=== PATIENT | female | born 1985 | race Caucasian/White ===

== ENCOUNTER → 2018-03-05 11:42 | Outpatient (CLI) | payer OTHER, MEDICAID, SELFPAY ==
[2018-03-05 12:29] LABS: Alanine Aminotransferase 101 IU/L (9-52); Albumin 4.9 g/dL (3.5-5.0); Albumin Globulin Ratio 1.6 (1.0-2.8); Alkaline Phosphatase 75 U/L (38-126); Aspartate Aminotransferase 53 IU/L (14-36); BUN Creatinine Ratio 13.3 (6-22); Bilirubin Total 0.8 mg/dL (0.2-1.3); Blood Urea Nitrogen 8 mg/dL (7-17); Calcium 9.3 mg/dL (8.4-10.2); Carbon Dioxide 28 mmol/L (22-32); Chloride 102 mmol/L (98-107); Estimated Glomerular Filt Rate > 60.0 mL/min (>60); Globulin 3.1 g/dL (1.7-4.1); Glucose 95 mg/dL (70-100); HEMOLYSIS < 15 (0-50); Potassium 4.1 mmol/L (3.4-5.1); Sodium 145 mmol/L (137-145)
[2018-03-05 13:16] LABS: TSH w/ Reflex to FT4 1.27 uIU/mL (0.47-4.68)
== END ==
PROVIDERS: PCP Family Medicine; Visit Provider Registered Nurse
DX: I10 Essential (primary) hypertension (principal)
CPT/HCPCS: 36415; 80053; 84443

== ENCOUNTER → 2018-03-30 09:25 | Outpatient (CLI) | payer OTHER, MEDICAID, SELFPAY ==
[2018-03-30 10:11] LABS: Add Manual Diff / Slide Review NO; Basophils Percent Auto 0.7 % (0-2); Eosinophils Percent Auto 2.1 % (2-4); Hemoglobin 15.4 g/dL (12.0-16.0); Lymphocytes Percent Auto 22.2 % (25-40); Mean Corpuscular HGB Conc 34.2 % (30-36); Mean Corpuscular Hemoglobin 32.7 PG (26-34); Mean Corpuscular Volume 95.6 fL (80-100); Monocytes Percent Auto 7.1 % (3-14); Neutrophils Absolute Auto 5500 /uL (1500-7000); Neutrophils Percent Auto 67.9 % (50-75); Platelet Count 290 X10^3/uL (150-400); Red Blood Cell Count 4.71 X10^6/uL (4.0-5.2); Red Cell Distribution Width 12.3 % (11.6-14.8); White Blood Cell Count 8.1 X10^3/uL (4.5-11.0)
[2018-03-30 10:15] LABS: Cholesterol 179 mg/dL (140-199); HDL Cholesterol 36 mg/dL (40-60); LDL Cholesterol Calculated 118 mg/dL (<100); Triglycerides 125 mg/dL (35-150)
[2018-03-30 10:19] LABS: Alanine Aminotransferase 66 IU/L (9-52); Albumin 4.7 g/dL (3.5-5.0); Albumin Globulin Ratio 1.6 (1.0-2.8); Alkaline Phosphatase 83 U/L (38-126); Aspartate Aminotransferase 34 IU/L (14-36); BUN Creatinine Ratio 13.3 (6-22); Blood Urea Nitrogen 8 mg/dL (7-17); Calcium 9.7 mg/dL (8.4-10.2); Carbon Dioxide 27 mmol/L (22-32); Chloride 103 mmol/L (98-107); Estimated Glomerular Filt Rate > 60.0 mL/min (>60); Globulin 2.9 g/dL (1.7-4.1); Glucose 96 mg/dL (70-100); HEMOLYSIS < 15 (0-50); Potassium 4.3 mmol/L (3.4-5.1); Sodium 142 mmol/L (137-145); Total Protein 7.6 g/dL (6.3-8.2)
== END ==
PROVIDERS: Registered Nurse; Family Provider Family Medicine; PCP Family Medicine; Visit Provider Family Medicine
DX: I10 Essential (primary) hypertension (principal); R74.8 Abnormal levels of other serum enzymes
CPT/HCPCS: 36415; 80053; 80061; 85025

== ENCOUNTER → 2019-08-23 11:05 | Outpatient (CLI) | payer OTHER, MEDICAID, SELFPAY ==
[2019-08-23 13:44] LABS: Alanine Aminotransferase 84 IU/L (<35); Albumin 4.1 g/dL (3.5-5.0); Albumin Globulin Ratio 1.4 (1.0-2.8); Alkaline Phosphatase 74 U/L (38-126); Aspartate Aminotransferase 56 IU/L (14-36); BUN Creatinine Ratio 24.1 (6-22); Bilirubin Total 0.7 mg/dL (0.2-1.3); Blood Urea Nitrogen 14 mg/dL (7-17); Calcium 8.8 mg/dL (8.4-10.2); Carbon Dioxide 29 mmol/L (22-32); Chloride 105 mmol/L (98-107); Cholesterol 140 mg/dL (140-199); Estimated Glomerular Filt Rate > 60.0 mL/min (>60); Globulin 2.9 g/dL (1.7-4.1); Glucose 100 mg/dL (70-100); HDL Cholesterol 42 mg/dL (40-60); HEMOLYSIS < 15 (0-50); LDL Cholesterol Calculated 75 mg/dL (<100); Potassium 3.8 mmol/L (3.4-5.1); Sodium 140 mmol/L (137-145); Triglycerides 115 mg/dL (35-150)
[2019-08-23 16:01] LABS: Creatinine Urine Random 336.2 mg/dL
[2019-08-23 16:04] LABS: Microalbumi Creatinin Ratio Ur 3.5 ug/mg CR (<30); Microalbumin Urine Random 1.2 mg/dL (0-1.6)
[2019-08-26 16:14] LABS: COVID19 Sendout Not Detected (Not Detected)
== END ==
PROVIDERS: PCP Family Medicine; Referring Provider Family Medicine; Visit Provider Family Medicine
DX: I10 Essential (primary) hypertension (principal)
CPT/HCPCS: 36415; 80053; 80061; 82043; 82570; 87635

== ENCOUNTER → 2019-08-26 12:15 | Outpatient (CLI) | payer OTHER, MEDICAID, SELFPAY ==
--- NOTE | 2019-09-03 16:14 | PM.PFT.1 ---
Pulmonary Function Test Referral & Results Date Patient Seen: 08/26/19 Requesting provider: Cesilia Beltran Results: The spirometry demonstrates an FVC of 3.46 L which is 98% of predicted. The FEV1 was measured at 2.82 L which is 96% of predicted. The FEV1/FVC ratio was 82 which is 98% of predicted. No bronchodilator was administered Lung volumes show an SVC of 3.24 L which is 96% of predicted. The diffusing capacity was measured at 21.39 which is 99% of predicted. The maximum voluntary ventilation was reduced Interpretation: This study demonstrates normal spirometry and diffusing capacity There is a notable reduction in maximum voluntary ventilation suggesting the possibility of neuromuscular disease Clinical correlation suggested
== END ==
PROVIDERS: PCP Family Medicine; Referring Provider Family Medicine; Visit Provider Family Medicine
DX: R06.02 Shortness of breath (principal); F17.200 Nicotine dependence, unspecified, uncomplicated
CPT/HCPCS: 94010; 94060; 94726; 94729

== ENCOUNTER → 2019-09-06 11:06 | Outpatient (CLI) | payer OTHER, MEDICAID, SELFPAY ==
--- NOTE | 2019-09-06 11:07 | DI.US.S_ITS ---
PROCEDURE: US ABDOMEN COMPLETE INDICATIONS: PERSISTENTLY ELEVATED LIVER ENZYMES TECHNIQUE: Real-time scanning was performed of the abdominal and retroperitoneal organs, with image documentation. COMPARISON: CT, ABD/PELVIS W/CON (PNL), 11/09/2013, 1:34. [facility], US, ABDOMEN COMPLETE, 12/06/2011, 14:39. FINDINGS: Liver: Liver is diffusely increased in echogenicity. No focal hepatic abnormalities identified. Normal hepatic size. Focal fatty sparing adjacent to the gallbladder. Gallbladder: No gallstones identified. Normal gallbladder wall. No pericholecystic fluid. Negative sonographic Edwards sign. Biliary ducts: Intrahepatic bile ducts are non-dilated. Extrahepatic bile duct caliber measures 5 mm. Normal is 6-7 mm or less in diameter, or 10 mm or less post-cholecystectomy. Pancreas: Visualized portions of the pancreas are sonographically normal. Spleen: Spleen is normal in size and homogeneous in echotexture. Kidneys: Kidneys are normal in size and echotexture. Right kidney measures 11.3 cm long; left kidney measures 12.3 cm long. No hydronephrosis or nephrolithiasis. No solid masses. Aorta: Visualized aorta is normal in caliber at less than 3 cm. Iliacs: Not well-visualized. IVC: Intrahepatic inferior vena cava is patent. Miscellaneous: No free abdominal fluid. IMPRESSION: 1. Increased hepatic echogenicity noted possibly related to hepatic steatosis but other sources of hepatocellular disease cannot be excluded. Recommend clinical correlation. Dictated by: Bharath Crow MERGED WITH [facility] Interpreted: Siva Dye MD on 09/06/2019 at 15:14 Approved by: Siva Dye M.D. on 09/06/2019 at 17:39
== END ==
PROVIDERS: PCP Family Medicine; Referring Provider Family Medicine; Visit Provider Family Medicine
DX: R74.8 Abnormal levels of other serum enzymes (principal)
CPT/HCPCS: 76700

== ENCOUNTER → 2019-09-14 09:54 | Outpatient (CLI) | payer OTHER, MEDICAID, SELFPAY ==
[2019-09-15 07:04] LABS: HBsAg Screen Negative (Negative); Hepatitis A Antibody IgM Negative (Negative); Hepatitis B Core Antibody IgM Negative (Negative); Hepatitis C Antibody <0.1 s/co ratio (0.0-0.9)
== END ==
PROVIDERS: PCP Family Medicine; Referring Provider Family Medicine; Visit Provider Family Medicine
DX: R74.8 Abnormal levels of other serum enzymes (principal)
CPT/HCPCS: 36415; 80074

== ENCOUNTER → 2019-11-16 11:21 | Outpatient (CLI) | payer OTHER, MEDICAID, SELFPAY ==
--- NOTE | 2019-11-16 11:26 | DI.US.S_ITS ---
PROCEDURE: US ABDOMEN COMPLETE INDICATIONS: SEVERE RIGHT UPPER QUADRANT PAIN TECHNIQUE: Real-time scanning was performed of the abdominal and retroperitoneal organs, with image documentation. COMPARISON: [facility], US, US ABDOMEN COMPLETE, 09/06/2019, 11:53. FINDINGS: Liver: The liver demonstrates normal size. The liver demonstrates generalized increased echogenicity. This decreases ultrasound sensitivity for detection of hepatic masses. Gallbladder: No findings of gallstones or sludge are seen. The gallbladder wall is not thickened, measuring 3 mm or less. No specific pericholecystic fluid is seen. The sonographic Edwards sign is negative. Biliary ducts: Intrahepatic bile ducts are non-dilated. Extrahepatic bile duct caliber measures 6 mm. Normal is 6-7 mm or less in diameter, or 10 mm or less post-cholecystectomy. Pancreas: Visualized portions of the pancreas are sonographically normal. Spleen: Spleen is normal in size and homogeneous in echotexture. Kidneys: Kidneys are normal in size and echotexture. Right kidney measures 11.2 cm long; left kidney measures 12.5 cm long. No hydronephrosis or nephrolithiasis. No solid masses. Aorta: Visualized aorta is normal in caliber at less than 3 cm. Iliacs: Proximal common iliac arteries are normal in caliber at less than 2.5 cm. IVC: Intrahepatic inferior vena cava is patent. Miscellaneous: No free abdominal fluid. IMPRESSION: The gallbladder demonstrates a normal sonographic appearance. No biliary dilatation is seen. The liver demonstrates increased echogenicity. This finding is nonspecific, yet it is most commonly attributed to fatty infiltration. Dictated by: Don Jolley M.D. on 11/16/2019 at 11:57 Approved by: Don Jolley M.D. on 11/16/2019 at 12:00
[2019-11-16 13:39] LABS: Add Manual Diff / Slide Review NO; Basophils Absolute Auto 100 /uL (0-100); Basophils Percent Auto 0.8 % (0-2); Eosinophils Absolute Auto 100 /uL (0-450); Eosinophils Percent Auto 0.9 % (2-4); Hematocrit 45.8 % (36-46); Hemoglobin 15.8 g/dL (12.0-16.0); Lymphocytes Absolute Auto 2300 /uL (1100-4500); Lymphocytes Percent Auto 25.7 % (25-40); Mean Corpuscular HGB Conc 34.5 % (30-36); Mean Corpuscular Hemoglobin 33.2 PG (26-34); Mean Corpuscular Volume 96.2 fL (80-100); Monocytes Absolute Auto 600 /uL (0-900); Monocytes Percent Auto 6.6 % (3-14); Neutrophils Absolute Auto 6000 /uL (1500-7000); Platelet Count 321 X10^3/uL (150-400); Red Blood Cell Count 4.77 X10^6/uL (4.0-5.2); Red Cell Distribution Width 13.5 % (11.6-14.8); White Blood Cell Count 9.1 X10^3/uL (4.5-11.0)
[2019-11-16 14:15] LABS: Alanine Aminotransferase 66 IU/L (<35); Albumin 4.5 g/dL (3.5-5.0); Albumin Globulin Ratio 1.7 (1.0-2.8); Alkaline Phosphatase 77 U/L (38-126); Aspartate Aminotransferase 42 IU/L (14-36); BUN Creatinine Ratio 17.5 (6-22); Bilirubin Total 0.5 mg/dL (0.2-1.3); Blood Urea Nitrogen 11 mg/dL (7-17); Calcium 9.2 mg/dL (8.4-10.2); Carbon Dioxide 32 mmol/L (22-32); Chloride 98 mmol/L (98-107); Estimated Glomerular Filt Rate > 60.0 mL/min (>60); Globulin 2.7 g/dL (1.7-4.1); Glucose 86 mg/dL (70-100); HEMOLYSIS < 15 (0-50); Lipase 48 U/L (23-300); Potassium 3.3 mmol/L (3.4-5.1); Sodium 139 mmol/L (137-145); Total Protein 7.2 g/dL (6.3-8.2)
== END ==
PROVIDERS: PCP Family Medicine; Referring Provider Family Medicine; Visit Provider Family Medicine
DX: R10.11 Right upper quadrant pain (principal)
CPT/HCPCS: 36415; 76700; 80053; 83690; 85025

== ENCOUNTER → 2019-12-23 07:43 | Outpatient (CLI) | payer OTHER, MEDICAID, SELFPAY ==
--- NOTE | 2019-12-23 07:44 | DI.NM.S_ITS ---
PROCEDURE: NM HIDA WITH CCK PHARMACEUTICAL: 5.5 mCi Tc-99m mebrofenin IV; 1.5 mcg CCK IV. INDICATIONS: biliary colic, no stones on US TECHNIQUE: Following intravenous administration of Tc-99m mebrofenin, sequential anterior abdominal images were obtained. To evaluate the contractile response of the gallbladder in response to Cholecystokinin (CCK), sincalide (0.02 ?g/kg) was administered by slow intravenous infusion approximately 60 minutes after the administration of the radiopharmaceutical. Sequential imaging was continued for 30 minutes after the start of CCK infusion. Gallbladder ejection fraction was calculated. COMPARISON: None. FINDINGS: Biliary scan: There is normal tracer uptake and excretion by the liver. There is normal visualization of the intrahepatic ducts, common bile duct, and gallbladder. There is normal tracer transit into the duodenum. CCK stimulation: There is normal contractile response of the gallbladder to CCK infusion. The calculated gallbladder ejection fraction is 7%; normal values are above 35%. It has been shown that any patient abdominal pain after CCK administration is related to the rate of CCK injection, rather than to any underlying gallbladder disease (Clinical Nuclear Medicine 2012; 37: 63-70. Journal of Nuclear Medicine 2014; 55: 1-9). IMPRESSION: Normal hepatobiliary uptake and scan. Normal gallbladder ejection fraction. Dictated by: Mahin Lopez M.D. on 12/23/2019 at 10:13 Approved by: Mahin Lopez M.D. on 12/23/2019 at 10:15
== END ==
PROVIDERS: PCP Family Medicine; Referring Provider Surgery; Visit Provider Surgery
DX: R10.11 Right upper quadrant pain (principal)
CPT/HCPCS: 78227; A9537; J2805

== ENCOUNTER 2020-01-05 11:44 | Day surgery (SDC) | payer OTHER, MEDICAID, SELFPAY ==
[2020-01-05] VITALS (14 sets, daily range): BP systolic 114–147; BP diastolic 76–89; PULSE 73–101; RESP 10–18; TEMP 36.2–36.8; O2SAT 93–100; BMI 29.2; BMI 29.6
--- NOTE | 2020-01-05 | PATH_ITS ---
[facility] Accession Number: [id number] . 01 Material submitted: . gallbladder - GALLBLADDER AND CONTENTS . 02 Diagnosis: Gallbladder and Contents, Cholecystectomy: Mild chronic cholecystitis. No evidence of neoplasm. MRV 01/07/2020 1142 Local . 02 Electronically signed: . Alden Villalobos MD, PhD, Pathologist NPI- [id number] . 01 Gross description: . Received in formalin, labeled gallbladder and contents, and consists of a 5.0 x 3.0 x 2.0 cm intact gallbladder with a 0.2 cm in diameter cystic duct. The serosa is banks-pink and smooth. Opening reveals a small amount of green viscous bile. No choleliths are identified. The mucosa is banks-pink and velvety, and the wall thickness measures 0.1 cm. Party Plan Sales Agent sections are submitted to include the en face cystic duct margin (green), body and fundus in cassette A1. (EA:[id number]) /MRV 01/06/2020 1056 Local . 02 Pathologist provided ICD-10: K81.1 . 02 CPT . 876342 Performed at: 01 [facility] [address], [place], [place] [id number] MD Fransico Storey MD Phone: [phone] Performed at: 02 [facility] [address] [place], [place] [id number] MD Usha Jacobson MD Phone: [phone]
[2020-01-05 12:39] LABS: COVID19 -Nasal RAPID Negative (Negative)
[2020-01-05] MEDS: ACETAMINOPHEN 325 MG TABLET 975 MG PO (13:12)
[2020-01-05] MEDS: LACTATED RINGERS 1,000 ML 42 ML IV ×2 (13:13→15:47)
[2020-01-05] MEDS: SCOPOLAMINE 1 PATCH TOP (13:13)
--- NOTE | 2020-01-05 13:30 | PM.PREOP ---
Pre-operative Note COVID-19 COVID-19 status: Negative Result date/Date tested (Pos, Neg/Pending): 01/05/20 Interval Note History & Physical reviewed/Exam performed by Physician: Yes Changes to H&P: No
[2020-01-05] MEDS: Non-Formulary Medication (Indocyanine 25 MG) 25 EACH IV (13:36)
[2020-01-05] MEDS: PIPERACILLIN-TAZO 3.375 GM/50 ML FROZ.PIGGY IV (14:00)
--- NOTE | 2020-01-05 14:19 | SUR.OPER ---
Supine on padded OR bed, head on pillow, arms secured on padded arm boards at <90 degrees abduction, legs uncrossed, safety belt at thigh, tape over blanket over lower legs.
[2020-01-05] MEDS: BUPIVACAINE 0.25% W/ EPI 30 ML VIAL 60 ML INJ (15:09)
--- NOTE | 2020-01-05 15:27 | P.OP_ITS ---
Operative Date/Time/Diagnoses Date of procedure: 01/05/20 Time of procedure: 15:27 Pre-op diagnosis: biliary hyperkinesia, biliary colic Post-op diagnosis: other (biliary hyperkinesia, biliary colic, chronic cholecystitis) Procedure & Clinicians Procedure: Laparoscopic cholecystectomy Indocyanine green cholangiography Same procedure as scheduled: Yes Indications: Biliary colic, biliary hyperkinesia Surgeon: Julisa Collins Click Yes if Unassisted: Yes Anesthesia Type: General Operative Notes Findings: Thickend gall bladder with dense adhesions in the hilum Specimen(s): other (gall bladder and contents) Estimated Blood Loss (mL): 3 Procedure in detail: The patient was brought into the operating room and placed supine on the OR table. Sequential compression devices were placed on both legs and turned on. Appropriate perioperative antibiotics were given prior to the start of surgery. General anesthesia was induced the patient was intubated. The abdomen was prepped and draped in sterile fashion. Surgical time-out was conducted. Local anesthetic was injected under the skin just superior to the umbilicus and a 5 mm vertical incision was made at this site. The umbilical stalk was grasped with a Terri and elevated. A Veress needle was passed through the fascia into proper position. The position was tested with a saline drop test which was appropriate for intra-abdominal Veress needle placement. The abdomen was then insufflated in the usual fashion. Once insufflated to 15 mm Hg the Veress needle was removed and a 5 mm optical trocar was placed under direct vision using a 5 mm 30 degree scope. Once the camera was inside the abdomen I took a look around. There was no injury from port placement. Two additional ports were placed in a similar fashion in the right upper quadrant and a 10 mm port was placed in the epigastrium. Through the 2 lateral ports the gallbladder was grasped and elevated and the infundibulum was retracted laterally to the patient's right. This exposed the gallbladder hilum and allowed for dissection of the cystic duct and cystic artery. There was quite a bit of dense scar tissue throughout the gallbladder hilum. This required tedious careful dissection to avoid injury to the bile ducts. I used indocyanine cholangiography to help identify the ducts and ensure the common bile duct was away from the area of dissection. Once the cystic duct and artery were completely dissected out and I was able to see liver behind and between both structures without any other structures in the way, giving us the critical view of safety. At this point I triply clipped both structures on the patient's side and put a single clip on the gallbladder side of both the cystic duct and artery. Both structures were then divided with laparoscopic Girish. Following this the gallbladder was gradually dissected free from the liver. There was quite a bit of hypervascularity of the scar tissue between the gallbladder and the liver. Several small vessels had to be controlled with cautery. Once the gallbladder was entirely freed, it was placed inside an Endo- Catch bag and removed through the epigastric port site. I did not have to enlarge the epigastric port site in order to get the gallbladder out. Once it was out and passed off to the back table I then took another look inside the abdomen. I irrigated and suctioned clean any remaining blood or fluid on the lateral side of the liver and in the subhepatic space. There was no active bleeding or leaking of bile from the gallbladder fossa or from the clipped stumps of the cystic duct and artery. At this point the insufflation was removed from the abdomen and the epigastric port site was closed with 0 Vicryl suture in the fascia, 3 O Vicryl in the subcutaneous layers, and 4 Monocryl in the skin. The remaining port sites were closed with 4 Monocryl in the skin. Each port site was sealed with Dermabond. Local anesthetic was given at each of the port sites and in the fascia. This concluded the procedure. At this point the needle sponge and instrument counts were correct. The gallbladder was passed off the table for pathology. Patient was awakened from anesthesia and extubated. She was transferred to the postanesthesia care unit in stable condition. Complications: none Post-operative Condition: stable Disposition: PACU
[2020-01-05] MEDS: fentaNYL 100 MCG/2 ML INJ IV ×2 (15:37→15:45)
[2020-01-05] MEDS: HYDROMORPHONE 2 MG INJ IV ×2 (15:37→15:55)
[2020-01-05] MEDS: ONDANSETRON 4 MG/2 ML INJ IV ×2 (15:38→16:09)
[2020-01-05] MEDS: OXYCODONE IR 5 MG TABLET PO ×2 (16:09→16:30)
--- NOTE | 2020-01-05 16:44 | SUR.PHASEII ---
Patient to Phase II in stable condition. Patient rates pain 5/10 and denies any nausea at this time. Crackers provided. Awaiting family member to arrive. No needs voiced at this time.
--- NOTE | 2020-01-05 17:23 | SUR.PHASEII ---
Discharged patient home with family in stable condition. All belongings returned to patient. VSS.
== END 2020-01-05 17:21 | disposition home or self-care (01) ==
PROVIDERS: PCP Family Medicine; Referring Provider Surgery; Visit Provider Surgery
PROC: 0FT44ZZ Resection of Gallbladder, Percutaneous Endoscopic Approach (ICD-10-PCS; CPT 47562; principal; 2020-01-05 13:45)
DX: K81.1 Chronic cholecystitis (principal); K82.8 Other specified diseases of gallbladder; I10 Essential (primary) hypertension; F17.210 Nicotine dependence, cigarettes, uncomplicated; F32.9 Major depressive disorder, single episode, unspecified; Z11.59 Encounter for screening for other viral diseases
CPT/HCPCS: 47563; 87635; J0330; J1100; J1170; J1885; J2250; J2405; J2543; J2704; J3010

== ENCOUNTER → 2020-01-18 11:24 | Outpatient (CLI) | payer OTHER, MEDICAID, SELFPAY ==
[2020-01-18 13:28] LABS: Adenovirus F 40/41 Not Detected (Not Detect); Astrovirus Not Detected (Not Detect); Campylobacter Not Detected (Not Detect); Clostridium difficile toxin AB Not Detected (Not Detect); Cryptosporidium Not Detected (Not Detect); Cyclospora cayetanensis Not Detected (Not Detect); Entamoeba histolytica Not Detected (Not Detect); Enteroaggregative E.coli Not Detected (Not Detect); Enteropathogenic E.coli Not Detected (Not Detect); Enterotoxigenic E.coli It/st Not Detected (Not Detect); Giardia lamblia Not Detected (Not Detect); Norovirus GI/GII Not Detected (Not Detect); Plesiomonsa shigelloides Not Detected (Not Detect); Rotavirus A Not Detected (Not Detect); Salmonella Not Detected (Not Detect); Sapovirus Not Detected (Not Detect); Shiga-like toxin-prod E.coli Not Detected (Not Detect); Shigella/Enteroinvasive E.coli Not Detected (Not Detect); Vibrio Not Detected (Not Detect); Vibrio cholerae Not Detected (Not Detect); Yersinia enterocolitica Not Detected (Not Detect)
== END ==
PROVIDERS: PCP Family Medicine; Referring Provider Surgery; Visit Provider Surgery
DX: R19.7 Diarrhea, unspecified (principal)
CPT/HCPCS: 87507

== ENCOUNTER → 2020-02-14 09:51 | Outpatient (CLI) | payer OTHER, MEDICAID, SELFPAY ==
[2020-02-14 10:54] LABS: Add Manual Diff / Slide Review NO; Basophils Absolute Auto 100 /uL (0-100); Basophils Percent Auto 0.8 % (0-2); Eosinophils Absolute Auto 100 /uL (0-450); Eosinophils Percent Auto 1.6 % (2-4); Hematocrit 45.4 % (36-46); Hemoglobin 15.6 g/dL (12.0-16.0); Lymphocytes Absolute Auto 2200 /uL (1100-4500); Lymphocytes Percent Auto 23.8 % (25-40); Mean Corpuscular HGB Conc 34.4 % (30-36); Mean Corpuscular Hemoglobin 33.1 PG (26-34); Monocytes Absolute Auto 700 /uL (0-900); Monocytes Percent Auto 7.9 % (3-14); Neutrophils Absolute Auto 6200 /uL (1500-7000); Neutrophils Percent Auto 65.9 % (50-75); Platelet Count 321 X10^3/uL (150-400); Red Blood Cell Count 4.72 X10^6/uL (4.0-5.2); Red Cell Distribution Width 12.9 % (11.6-14.8); White Blood Cell Count 9.3 X10^3/uL (4.5-11.0)
[2020-02-14 12:19] LABS: TSH w/ Reflex to FT4 1.54 uIU/mL (0.47-4.68)
== END ==
PROVIDERS: PCP Family Medicine; Referring Provider Family Medicine; Visit Provider Family Medicine
DX: F41.8 Other specified anxiety disorders (principal)
CPT/HCPCS: 36415; 84443; 85025

== ENCOUNTER → 2020-02-28 10:20 | Outpatient (CLI) | payer OTHER, MEDICAID, SELFPAY ==
[2020-02-28 11:30] LABS: COVID19 -Nasal RAPID Negative (Negative)
== END ==
PROVIDERS: PCP Family Medicine; Visit Provider Surgery
DX: Z01.812 Encounter for preprocedural laboratory examination (principal); Z20.828 Contact with and (suspected) exposure to other viral communicable diseases
CPT/HCPCS: 87635; 99211

== ENCOUNTER 2020-02-29 12:18 | Day surgery (SDC) | payer OTHER, MEDICAID, SELFPAY ==
--- NOTE | 2020-02-29 | PATH_ITS ---
[facility] Accession Number: [id number] . 01 Material submitted: . colon - RANDOM BIOPSIES . 01 Clinical history: . SDC . 02 Diagnosis: Random Colon, Biopsies: Colonic mucosa with no diagnostic abnormality. Negative for active, chronic, and microscopic colitis. Negative for dysplasia and malignancy. . MRV 03/02/2020 0945 Local . 02 Electronically signed: . Usha Jacobson MD, Pathologist NPI- [id number] . 01 Gross description: . RANDOM BIOPSIES: Received in formalin are multiple fragment(s) of banks, soft tissue measuring 0.9 x 0.8 x 0.2 cm in aggregate submitted entirely in 1 cassette(s) /QBJ 03/01/2020 1051 Local . 02 Pathologist provided ICD-10: R19.4 . 02 CPT . 756902 Performed at: 01 [facility] [address] [facility], [place], [place] [id number] MD Fransico Storey MD Phone: [phone] Performed at: 02 [facility] [address] [place], [place] [id number] MD Usha Jacobson MD Phone: [phone]
[2020-02-29 12:53] VITALS: BP 139/94; PULSE 82; RESP 16; TEMP 36.8; O2SAT 97; BMI 29.8
[2020-02-29] MEDS: SODIUM CHLORIDE 0.9% 1,000 ML 200 ML IV (13:03)
--- NOTE | 2020-02-29 13:42 | PM.PREOP ---
Pre-operative Note COVID-19 COVID-19 status: Negative Result date/Date tested (Pos, Neg/Pending): 02/28/20 Interval Note History & Physical reviewed/Exam performed by Physician: Yes Changes to H&P: No ASA Class (for procedural sedation): II
--- NOTE | 2020-02-29 13:49 | P.OP.ENDO_ITS ---
Operative Date/Time/Diagnoses Date of procedure: 02/29/20 Time of procedure: 14:08 Pre-op diagnosis: Chronic diarrhea Post-op diagnosis: same Procedure & Clinicians Study performed: Colonoscopy Procedural sedation performed by the endoscopist Random biopsies of the ascending, transverse, descending, sigmoid, rectum Same procedure as scheduled: Yes Indications: Chronic diarrhea, rule out colitis Surgeon: Julisa Collins Procedure Notes SCOAP/Timeout: Performed Procedure in detail: The patient was brought to the room and placed in left lateral decubitus position with all bony prominences padded. A time-out was performed and then the patient was given procedural sedation starting with 4 mg of Versed and 100 mcg of fentanyl. Total of 6 mg of Versed and 200 micro g of fentanyl were given for the entire Vitals were monitored throughout the procedure and remained stable. Once adequately sedated, the procedure was begun. A rectal exam was performed revealing no abnormalities. The colonoscope was then introduced to the rectum and advanced to the cecum in the usual fashion. The cecum was identified by the appendiceal orifice, the mucosal tri- fold, and the ileocecal valve. The scope was then retracted while rotating side to side and examining each mucosal fold. Random biopsies were taken throughout the colon. A few scattered diverticula were seen in the descending and sigmoid colon. No polyps, or other visible abnormalities were noted. At the conclusion of the procedure retroflexion was performed and small grade 1-2 internal hemorrhoids without stigmata of bleeding were seen. The scope was then withdrawn from the rectum the procedure was concluded. The patient tolerated the procedure well and was transferred to the PACU in stable condition. Scope withdrawal time: 11 Sedation minutes: 20 Findings: diverticulosis Specimen(s): other (Random biopsies) Complications: none Impression: This very diverticulosis, no evidence of inflammatory bowel disease, no polyps Post-procedure Recommendations: Colonscopy in 10 years, Will call with biopsy results and Other recommendation (Further recommendations pending biopsy results) Follow up: as needed Disposition: PACU
[2020-02-29] MEDS: fentaNYL 250 MCG/5 ML INJ IV (14:05)
[2020-02-29] MEDS: MIDAZOLAM 5 MG/5 ML VIAL IV (14:05)
[2020-02-29 14:12] VITALS: BP 127/92; PULSE 72; RESP 10; TEMP 36.8; O2SAT 98
[2020-02-29 14:17] VITALS: BP 118/76; PULSE 81; RESP 16; O2SAT 100
[2020-02-29 14:22] VITALS: BP 130/76; PULSE 83; RESP 12; O2SAT 100
[2020-02-29 14:27] VITALS: BP 130/99; PULSE 83; RESP 12; O2SAT 99
[2020-02-29 14:29] VITALS: BP 136/92; PULSE 79; RESP 12; TEMP 36.5; O2SAT 100
== END 2020-02-29 14:49 | disposition home or self-care (01) ==
PROVIDERS: PCP Family Medicine; Referring Provider Surgery; Visit Provider Surgery
PROC: 0DJD8ZZ Inspection of Lower Intestinal Tract, Via Natural or Artificial Opening Endoscopic (ICD-10-PCS; CPT 45378; principal; 2020-02-29 13:45)
DX: K52.9 Noninfective gastroenteritis and colitis, unspecified (principal); I10 Essential (primary) hypertension; F17.210 Nicotine dependence, cigarettes, uncomplicated; K64.0 First degree hemorrhoids; K57.30 Diverticulosis of large intestine without perforation or abscess without bleeding
CPT/HCPCS: 45380; 99152; J2250; J3010

== ENCOUNTER → 2020-06-27 10:34 | Outpatient (CLI) | payer OTHER, MEDICAID, SELFPAY ==
--- NOTE | 2020-06-27 10:35 | DI.CT.S_ITS ---
PROCEDURE: CT ABDOMEN PELVIS W CON INDICATIONS: chronic diarrhea, persistent RUQ abd pain s/p cholecystectom TECHNIQUE: After the administration of oral and intravenous contrast, 5 mm thick sections acquired from the diaphragms to the symphysis. 5 mm thick coronal and sagittal reformats were performed. For radiation dose reduction, the following was used: automated exposure control, adjustment of mA and/or kV according to patient size. COMPARISON: [facility], , US ABDOMEN COMPLETE, 11/16/2019, 12:13. FINDINGS: Image quality: Excellent. ABDOMEN: Lung bases: Lung bases are clear. Heart size is normal. Solid organs: There is hepatomegaly and hepatic steatosis. No discrete hepatic lesion is seen.. Gallbladder is surgically absent. Biliary system is non-dilated. Pancreas enhances normally. Spleen is normal in size and enhancement. No adrenal nodules. Kidneys are normal in size and enhancement, without hydronephrosis. Peritoneum and bowel: There is no bowel obstruction. No gastric or small bowel wall thickening. Mild to moderate wall thickening involving ascending colon and transverse colon is seen with narrowing of the lumen and wall edema suggestive of infectious or inflammatory colitis. Descending and sigmoid colon diverticulosis is seen without CT evidence of acute diverticulitis. No abscess collection. No free fluid or free air. Appendix is visualized and is within normal limits. Nodes and vessels: No retroperitoneal or mesenteric adenopathy. Aorta and inferior vena cava are normal in caliber. Miscellaneous: No ventral hernias. PELVIS: Genitourinary: Bladder wall thickness is normal. No gross abnormality is seen in uterus and bilateral adnexa. Miscellaneous: No inguinal hernias or adenopathy. Bones: No suspicious bony lesions. No vertebral body compression fractures. IMPRESSION: 1. Interval cholecystectomy. Hepatomegaly and hepatic steatosis, no discrete hepatic lesion. No biliary ductal dilatation. 2. Distal ascending colon and transverse colon wall thickening with narrowing of the lumen and wall edema concerning for infectious or inflammatory colitis. No evidence of acute diverticulitis or appendicitis. No abscess collection. No free fluid or free air. Dictated by: Siva Dye M.D. on 06/27/2020 at 16:00 Approved by: Siva Dye M.D. on 06/27/2020 at 16:02
== END ==
PROVIDERS: PCP Family Medicine; Referring Provider Family Medicine; Visit Provider Family Medicine
DX: K52.9 Noninfective gastroenteritis and colitis, unspecified (principal); Z90.49 Acquired absence of other specified parts of digestive tract; R10.11 Right upper quadrant pain; R16.0 Hepatomegaly, not elsewhere classified; K76.0 Fatty (change of) liver, not elsewhere classified
CPT/HCPCS: 74177; Q9967

== ENCOUNTER → 2020-06-30 16:33 | Outpatient (CLI) | payer OTHER, MEDICAID, SELFPAY ==
[2020-06-30 18:16] LABS: Ferritin 183 ng/mL (6-137)
[2020-07-02 08:53] LABS: Alpha 1 Anti Trypsin 125 mg/dL (100-188); Ceruloplasmin 26.6 mg/dL (19.0-39.0)
[2020-07-03 14:08] LABS: ANA Screen, IFA Negative (.)
[2020-07-04 15:13] LABS: Calprotectin, Stool 23 ug/g (0-120)
[2020-07-04 15:13] LABS: Smooth Muscle Antibody 3 Units (0-19)
[2020-07-07 10:39] LABS: Pancreatic Elastase, Fecal 425 (>200)
== END ==
PROVIDERS: PCP Family Medicine; Referring Provider Internal Medicine Gastroenterology; Visit Provider Internal Medicine Gastroenterology
DX: R10.9 Unspecified abdominal pain (principal); R19.7 Diarrhea, unspecified
CPT/HCPCS: 36415; 82103; 82390; 82656; 82710; 82728; 83516; 83993; 86038

== ENCOUNTER → 2020-08-18 12:23 | Outpatient (CLI) | payer OTHER, MEDICAID, SELFPAY ==
[2020-08-18 13:27] LABS: Alanine Aminotransferase 128 IU/L (<35); Albumin 4.5 g/dL (3.5-5.0); Albumin Globulin Ratio 1.6 (1.0-2.8); Alkaline Phosphatase 84 U/L (38-126); Aspartate Aminotransferase 65 IU/L (14-36); Bilirubin Total 0.8 mg/dL (0.2-1.3); Bilirubin Unconjugated 0.8 mg/dL (0.0-1.1); Globulin 2.8 g/dL (1.7-4.1); HEMOLYSIS 17 (0-50); Total Protein 7.3 g/dL (6.3-8.2)
== END ==
PROVIDERS: PCP Family Medicine; Referring Provider Internal Medicine Gastroenterology; Visit Provider Internal Medicine Gastroenterology
DX: R10.9 Unspecified abdominal pain (principal)
CPT/HCPCS: 36415; 80076

== ENCOUNTER → 2020-08-31 14:00 | Outpatient (CLI) | payer OTHER, MEDICAID, SELFPAY ==
[2020-08-31 14:35] LABS: Add Manual Diff / Slide Review NO; Basophils Absolute Auto 100 /uL (0-100); Basophils Percent Auto 0.9 % (0-2); Eosinophils Absolute Auto 200 /uL (0-450); Eosinophils Percent Auto 2.2 % (2-4); Hematocrit 45.7 % (36-46); Hemoglobin 16.1 g/dL (12.0-16.0); Lymphocytes Absolute Auto 2100 /uL (1100-4500); Lymphocytes Percent Auto 28.2 % (25-40); Mean Corpuscular HGB Conc 35.3 % (30-36); Mean Corpuscular Volume 93.4 fL (80-100); Monocytes Absolute Auto 600 /uL (0-900); Monocytes Percent Auto 7.8 % (3-14); Neutrophils Absolute Auto 4500 /uL (1500-7000); Neutrophils Percent Auto 60.9 % (50-75); Platelet Count 312 X10^3/uL (150-400); Red Blood Cell Count 4.89 X10^6/uL (4.0-5.2); Red Cell Distribution Width 12.5 % (11.6-14.8); White Blood Cell Count 7.4 X10^3/uL (4.5-11.0)
== END ==
PROVIDERS: PCP Family Medicine; Referring Provider Internal Medicine Gastroenterology; Visit Provider Internal Medicine Gastroenterology
DX: R10.9 Unspecified abdominal pain (principal)
CPT/HCPCS: 36415; 85025

== ENCOUNTER → 2020-09-01 15:51 | Outpatient (CLI) | payer OTHER, MEDICAID, SELFPAY ==
[2020-09-03 10:48] LABS: Interpretation Negative (Negative)
== END ==
PROVIDERS: PCP Family Medicine; Referring Provider Internal Medicine Gastroenterology; Visit Provider Internal Medicine Gastroenterology
DX: R10.9 Unspecified abdominal pain (principal)
CPT/HCPCS: 83013

== ENCOUNTER → 2020-10-17 09:09 | Outpatient (CLI) | payer OTHER, MEDICAID, SELFPAY ==
[2020-10-17 10:18] LABS: BUN Creatinine Ratio 19.1 (6-22); Blood Urea Nitrogen 9 mg/dL (7-17); Calcium 9.6 mg/dL (8.4-10.2); Carbon Dioxide 28 mmol/L (22-32); Chloride 104 mmol/L (98-107); Cholesterol 200 mg/dL (140-199); Estimated Glomerular Filt Rate > 60.0 mL/min (>60); Glucose 92 mg/dL (70-100); HDL Cholesterol 52 mg/dL (40-60); HEMOLYSIS < 15 (0-50); LDL Cholesterol Calculated 119 mg/dL (<100); Potassium 3.7 mmol/L (3.4-5.1); Sodium 140 mmol/L (137-145); Triglycerides 146 mg/dL (35-150)
[2020-10-17 10:19] LABS: Alanine Aminotransferase 51 IU/L (<35); Albumin 4.2 g/dL (3.5-5.0); Albumin Globulin Ratio 1.6 (1.0-2.8); Alkaline Phosphatase 80 U/L (38-126); Aspartate Aminotransferase 31 IU/L (14-36); Bilirubin Total 0.3 mg/dL (0.2-1.3); Bilirubin Unconjugated 0.2 mg/dL (0.0-1.1); Globulin 2.7 g/dL (1.7-4.1); HEMOLYSIS < 15 (0-50); Total Protein 6.9 g/dL (6.3-8.2)
[2020-10-17 10:38] LABS: Microalbumin Urine Random 1.5 mg/dL (0-1.6)
[2020-10-17 11:14] LABS: Creatinine Urine Random 383.2 mg/dL; Microalbumi Creatinin Ratio Ur 3.9 ug/mg CR (<30)
== END ==
PROVIDERS: Internal Medicine Gastroenterology; PCP Family Medicine; Referring Provider Family Medicine; Visit Provider Family Medicine
DX: R79.89 Other specified abnormal findings of blood chemistry (principal); I10 Essential (primary) hypertension
CPT/HCPCS: 36415; 80048; 80061; 80076; 82043; 82570

== ENCOUNTER → 2020-10-30 15:20 | Outpatient (CLI) | payer OTHER, MEDICAID, SELFPAY ==
[2020-10-30 17:00] LABS: COVID19 -Nasal RAPID Negative (Negative)
== END ==
PROVIDERS: PCP Family Medicine; Visit Provider Nurse Practitioner
DX: Z01.812 Encounter for preprocedural laboratory examination (principal); Z20.822 Contact with and (suspected) exposure to COVID-19
CPT/HCPCS: 87635; C9803

== ENCOUNTER 2020-10-31 13:34 | Day surgery (SDC) | payer OTHER, MEDICAID, SELFPAY ==
--- NOTE | 2020-10-31 | PATH_ITS ---
[facility] Accession Number: [id number] . 01 Material submitted: . PART A: colon - DISTAL ASCENDING COLON POLYP PART B: colon - RANDOM LEFT COLON . 02 Diagnosis: A. Distal Ascending Colon, Polyp, Biopsy: Colonic mucosa with no diagnostic abnormality consistent with polypoid redundancy. Additional levels were examined. Negative for dysplasia and malignancy. . B. Random Left Colon, Biopsies: Colonic mucosa with no diagnostic abnormality. Negative for active, chronic, and microscopic colitis. Negative for dysplasia and malignancy. . [facility] 11/02/2020 1554 Local . 02 Electronically signed: . Usha Jacobson MD, Pathologist NPI- [id number] . 01 Gross description: . Part A: DISTAL ASCENDING COLON POLYP: Received in formalin are 2 fragment(s) of banks, soft tissue measuring 0.6 x 0.2 x 0.1 cm to 0.3 x 0.2 x 0.1 cm submitted entirely in 1 cassette(s) Part B: RANDOM LEFT COLON: Received in formalin are 2 fragment(s) of banks, soft tissue measuring 0.4 x 0.3 x 0.2 cm to 0.3 x 0.2 x 0.1 cm submitted entirely in 1 cassette(s) /SARAH 11/01/2020 0447 Local . 02 Pathologist provided ICD-10: R79.89 . 02 CPT . 064513, 122514 Performed at: 01 [facility] [address] [place] [id number] MD Fransico Storey MD Phone: [phone] Performed at: 02 [facility] [id number] [place], [place] [id number] MD Usha Jacobson MD Phone: [phone]
[2020-10-31] MEDS: SODIUM CHLORIDE 0.9% 1,000 ML 125 ML IV (14:36)
[2020-10-31 14:37] VITALS: BP 123/90; PULSE 86; RESP 18; TEMP 37; BMI 28.3
--- NOTE | 2020-10-31 14:47 | P.HP_ITS ---
History of Present Illness History of Present Illness Date Patient Seen: 10/31/20 Time Patient Seen: 14:47 Chief complaint: [facility] [place]arrative: I reviewed Dr. Burdick's note. The patient has abnormal imaging abdominal pain on the right Patient History Medical History Abnormal biliary HIDA scan ADHD (attention deficit hyperactivity disorder) Colicky RUQ abdominal pain Depression Essential hypertension Hypertension Meniere's disease PTSD (post-traumatic stress disorder) Shortness of breath Wears dentures Surgical History History of dilatation and curettage (~08/2019) History of tooth extraction Status post delivery Status post tubal ligation Family & Social History Family History Father Age: 66 [place] (myocardial infarction) Alcoholism Hypertension Heart disease Mother Cancer Grandmother Diabetes mellitus Cancer Grandfather Cancer Stroke Social History: household members family,children lives independently Yes caregiver/support person No Tobacco & Substance use: Tobacco type cigarettes Smoking Status Current every day smoker Smoking packs per day 1 alcohol intake current alcohol intake frequency a few times a month Substance Use Type marijuana Meds Home Medications and Allergies Home Medications Medication Instructions Recorded Confirmed Type meclizine 25 mg tablet 25 mg PO TID PRN #90 tab 11/04/18 10/31/20 Rx dextroamphetamine-amphetamine ER 20 mg PO QAM #30 cap 06/19/20 10/31/20 Rx 20 mg 24hr capsule,extend release fluticasone propionate 50 1 spray INTRANASAL BID #3 gm 08/14/20 10/31/20 Rx mcg/actuation nasal spray,suspension sertraline 100 mg tablet See Rx Instructions .ROUTE 08/14/20 10/31/20 Rx .COMPLEX #30 tab losartan 50 mg-hydrochlorothiazide 0.5 tab PO DAILY 10/31/20 10/31/20 History 12.5 mg tablet Allergies Allergy/AdvReac Type Severity Reaction Status Date / Time albuterol [ALBUTEROL] Allergy Severe ANAPHALAXIS Verified 10/31/20 14:26 occlusive dressing Allergy Mild Red, Uncoded 10/31/20 14:26 itchy, painful all breathing treatments AdvReac Intermediate numbness Uncoded 10/31/20 14:26 Review of Systems Review of Systems ROS: Yes All systems reviewed with the patient and are negative except as otherwise documented Exam Vital Signs (past 8 hours): - 10/31/20 14:37 Temperature 98.6 F Pulse Rate 86 Respiratory Rate 18 Blood Pressure 123/90 Oxygen Delivery Method Room Air Const General: cooperative and comfortable Orientation: alert HENSD Head: normocephalic Ears: external ears normal Nose: external nose normal Face and sinus: normal facial exam Mouth: oral mucosae normal Eyes General: appearance normal, both eyes and all related structures Neck Neck: normal visual inspection Chest Chest: normal inspection of the chest Resp Effort & Inspection: normal respiratory effort Auscultation: clear to auscultation bilaterally Cardio Rate: regular rate Rhythm: regular rhythm Heart Sounds: no murmurs GI Inspection: normal to inspection Palpation: soft and No tender Auscultation: normal bowel sounds Skin General: no rashes or lesions noted and No jaundice Neuro General: patient alert and moves all extremities Cognition: normal cognition Speech: speech normal Extrem General: no pedal edema Psych Appearance: grossly normal Assessment & Plan Assessment & Plan narrative: Abnormal imaging, diarrhea, abdominal pain. Colonoscopy is planned for today.
--- NOTE | 2020-10-31 14:49 | PM.PREOP ---
Pre-operative Note COVID-19 COVID-19 status: Negative Result date/Date tested (Pos, Neg/Pending): 10/30/20 Interval Note History & Physical reviewed/Exam performed by Physician: Yes Changes to H&P: No ASA Class (for procedural sedation): II
--- NOTE | 2020-10-31 15:46 | SUR.OPER ---
[facility] AT 1547
--- NOTE | 2020-10-31 15:54 | PM.OP.ENDO ---
Operative Date/Time/Diagnoses Date of procedure: 10/31/20 Time of procedure: 15:54 Pre-op diagnosis: Abnormal imaging, diarrhea, abdominal pain Post-op diagnosis: same Procedure & Clinicians Study performed: Colonoscopy with biopsies Same procedure as scheduled: Yes Indications: Abdominal pain, diarrhea, abnormal imaging Surgeon: Barrett Rodriguez Procedure Notes SCOAP/Timeout: Done Procedure in detail: After the risks and benefits were explained, written and verbal informed consent was obtained. The patient was brought into the procedure room and placed into the left lateral decubitus position. MAC was applied as the patient had a number of qualifying diagnoses (etoh use for example) and required MAC for her EGD. Digital rectal examination was accomplished. The scope was introduced into the patient and advanced under direct visualization to the cecum as identified by the appendiceal orifice and ileocecal valve. The scope was slowly withdrawn to carefully examine the mucosa for any defects or lesions. Comprehensive imaging was accomplished throughout the rectum including the dentate line. The colon was decompressed, the scope was then removed from the patient who tolerated the procedure well. Bowel prep adequate Pediatric scope Scope withdrawal time: 8 minutes Sedation minutes: 15 Complications: none Impression: There was no evidence of proctitis. There was no evidence of active or visible colitis throughout the entire colon and cecum. Careful attention was paid to the areas described on CT to have thickening. I did not see anything that would correlate with the CT scan report. We therefore elected to take biopsies from the distal ascending near the hepatic flexure. I took a 2nd set of random biopsies from the left colon in the sigmoid. The terminal ileum was interrogated and appeared entirely normal with very well preserved villi. Endoscopic diagnosis Visually normal colonoscopy and terminal ileoscopy Post-procedure Recommendations: Will call with biopsy results Plan for aftercare: 1. Await histopathology 2. Follow up GI clinic Disposition: PACU
[2020-10-31 16:03] VITALS: BP 127/78; PULSE 75; RESP 23; TEMP 36.6; O2SAT 100
[2020-10-31 16:09] VITALS: BP 134/85; PULSE 69; RESP 21; O2SAT 99
[2020-10-31 16:14] VITALS: BP 151/94; PULSE 67; RESP 20; O2SAT 100
[2020-10-31 16:21] VITALS: BP 127/87; PULSE 66; RESP 18; TEMP 36.8; O2SAT 100
[2020-10-31 16:32] VITALS: BP 145/86; PULSE 64; RESP 16; TEMP 36.8; O2SAT 99
== END 2020-10-31 16:42 | disposition home or self-care (01) ==
PROVIDERS: PCP Family Medicine; Referring Provider Internal Medicine Gastroenterology; Visit Provider Internal Medicine Gastroenterology
PROC: 0DJD8ZZ Inspection of Lower Intestinal Tract, Via Natural or Artificial Opening Endoscopic (ICD-10-PCS; CPT 45378; principal; 2020-10-31 14:30)
DX: R10.9 Unspecified abdominal pain (principal); R93.3 Abnormal findings on diagnostic imaging of other parts of digestive tract; R19.7 Diarrhea, unspecified; F17.210 Nicotine dependence, cigarettes, uncomplicated; I10 Essential (primary) hypertension
CPT/HCPCS: 45380

== ENCOUNTER → 2022-06-14 08:42 | Outpatient (CLI) | payer OTHER, MEDICAID, SELFPAY ==
[2022-06-14 11:02] LABS: Alanine Aminotransferase 36 IU/L (<35); Albumin 4.4 g/dL (3.5-5.0); Albumin Globulin Ratio 1.5 (1.0-2.8); Alkaline Phosphatase 78 U/L (38-126); Aspartate Aminotransferase 30 IU/L (14-36); BUN Creatinine Ratio 12.5 (6-22); Bilirubin Total 0.7 mg/dL (0.2-1.3); Blood Urea Nitrogen 6 mg/dL (7-17); Calcium 9.3 mg/dL (8.4-10.2); Carbon Dioxide 26 mmol/L (22-32); Chloride 100 mmol/L (98-107); Cholesterol 228 mg/dL (140-199); Estimated Glomerular Filt Rate > 60 mL/min (>60); Glucose 93 mg/dL (70-100); HDL Cholesterol 70 mg/dL (40-60); HEMOLYSIS < 15 (0-50); LDL Cholesterol Calculated 142 mg/dL (<100); Potassium 3.3 mmol/L (3.4-5.1); Sodium 136 mmol/L (137-145); Total Protein 7.4 g/dL (6.3-8.2); Triglycerides 79 mg/dL (35-150)
== END ==
PROVIDERS: PCP Family Medicine; Referring Provider Family Medicine; Visit Provider Family Medicine
DX: I10 Essential (primary) hypertension (principal)
CPT/HCPCS: 36415; 80053; 80061

== ENCOUNTER → 2023-03-04 14:12 | Outpatient (CLI) | payer OTHER, SELFPAY | PROVIDERS: PCP Family Medicine; Visit Provider Family Medicine | DX: L98.9 Disorder of the skin and subcutaneous tissue, unspecified (principal) | CPT/HCPCS: 87070; 87075; 87205 ==

== ENCOUNTER → 2024-01-14 15:44 | Outpatient (CLI) | payer OTHER, SELFPAY ==
[2024-01-14 16:22] LABS: Hemoglobin A1C% w Est Avg Glu 5.1 % (4.0-6.0)
[2024-01-14 16:48] LABS: Alanine Aminotransferase 27 IU/L (<35); Albumin 4.6 g/dL (3.5-5.0); Albumin Globulin Ratio 1.7 (1.0-2.8); Alkaline Phosphatase 78 U/L (38-126); Aspartate Aminotransferase 24 IU/L (14-36); BUN Creatinine Ratio 12.5 (6-22); Bilirubin Total 0.9 mg/dL (0.2-1.3); Blood Urea Nitrogen 7 mg/dL (7-17); Calcium 9.6 mg/dL (8.4-10.2); Carbon Dioxide 25 mmol/L (22-32); Chloride 105 mmol/L (98-107); Cholesterol 195 mg/dL (140-199); Estimated Glomerular Filt Rate > 60 mL/min (>60); Globulin 2.7 g/dL (1.7-4.1); Glucose 97 mg/dL (70-100); HDL Cholesterol 48 mg/dL (40-60); HEMOLYSIS < 15 (0-50); LDL Cholesterol Calculated 120 mg/dL (<100); Potassium 3.6 mmol/L (3.4-5.1); Sodium 139 mmol/L (137-145); Total Protein 7.3 g/dL (6.3-8.2); Triglycerides 135 mg/dL (35-150)
[2024-01-14 19:01] LABS: Microalbumin Urine Random 2.8 mg/dL (0-1.6)
[2024-01-14 20:08] LABS: Creatinine Urine Random 458.88 mg/dL
== END ==
PROVIDERS: PCP Family Medicine; Referring Provider Family Medicine; Visit Provider Family Medicine
DX: I10 Essential (primary) hypertension (principal)
CPT/HCPCS: 36415; 80053; 80061; 82043; 82570; 83036

== ENCOUNTER → 2024-03-12 12:23 | Outpatient (CLI) | payer OTHER, SELFPAY ==
[2024-03-12 13:25] LABS: Appearance Urine UA SL CLOUDY; Bilirubin Urine UA 1+ (NEGATIVE); Color Urine UA ORANGE; Glucose Urine UA TRACE g/dL (Negative); Ketones Urine UA NEGATIVE (NEGATIVE); Leukocyte Esterase Urine UA 1+ (NEGATIVE); Nitrite Urine UA POSITIVE (Negative); Occult Blood Urine UA 2+ (Negative); Protein Urine UA 1+ (Negative); Specific Gravity Urine UA 1.025 (1.000-1.035)
[2024-03-12 13:27] LABS: Ictotest Urine Negative (Negative); Urine Volume 10mL (spun)
[2024-03-12 13:29] LABS: Bacteria Urine Few (2-10); Culture Indicated Urine Specimen Cultured; RBC Urine 5-10/HPF (0-5/HPF); Squamous Epithelial Cell Urine 0-1 /HPF (0-5/HPF); WBC Urine 1-5/HPF (0-5/HPF)
== END ==
PROVIDERS: PCP Family Medicine; Referring Provider Family Medicine; Visit Provider Family Medicine
DX: R30.0 Dysuria (principal); R10.9 Unspecified abdominal pain; R39.15 Urgency of urination; R31.9 Hematuria, unspecified
CPT/HCPCS: 81001; 87077; 87086

== ENCOUNTER → 2024-04-14 15:42 | Outpatient (CLI) | payer OTHER, SELFPAY | PROVIDERS: PCP Family Medicine; Visit Provider Family Medicine | DX: N39.0 Urinary tract infection, site not specified (principal) | CPT/HCPCS: 87086 ==

== ENCOUNTER → 2024-08-31 11:56 | Outpatient (CLI) | payer OTHER, SELFPAY ==
[2024-08-31 12:20] LABS: Add Manual Diff / Slide Review NO; Basophils Absolute Auto 100 /uL (0-100); Basophils Percent Auto 0.8 % (0-2); Eosinophils Absolute Auto 300 /uL (0-450); Hematocrit 40.1 % (36-46); Hemoglobin 13.9 g/dL (12.0-16.0); Lymphocytes Absolute Auto 2300 /uL (1100-4500); Lymphocytes Percent Auto 35.1 % (25-40); Mean Corpuscular HGB Conc 34.6 % (30-36); Mean Corpuscular Hemoglobin 31.6 PG (26-34); Mean Corpuscular Volume 91.3 fL (80-100); Monocytes Absolute Auto 400 /uL (0-900); Monocytes Percent Auto 5.3 % (3-14); Neutrophils Absolute Auto 3600 /uL (1500-7000); Neutrophils Percent Auto 54.8 % (50-75); Platelet Count 266 X10^3/uL (150-400); Red Blood Cell Count 4.39 X10^6/uL (4.0-5.2); Red Cell Distribution Width 12.9 % (11.6-14.8); White Blood Cell Count 6.6 X10^3/uL (4.5-11.0)
[2024-08-31 12:44] LABS: Alanine Aminotransferase 25 IU/L (<35); Albumin Globulin Ratio 1.7 (1.0-2.8); Alkaline Phosphatase 65 U/L (38-126); Aspartate Aminotransferase 22 IU/L (14-36); BUN Creatinine Ratio 13.6 (6-22); Bilirubin Total 0.4 mg/dL (0.2-1.3); Blood Urea Nitrogen 8 mg/dL (7-17); Calcium 8.8 mg/dL (8.4-10.2); Carbon Dioxide 25 mmol/L (22-32); Chloride 108 mmol/L (98-107); Estimated Glomerular Filt Rate > 60 mL/min (>60); Globulin 2.4 g/dL (1.7-4.1); Glucose 98 mg/dL (70-99); HEMOLYSIS < 15 (0-50); Potassium 3.5 mmol/L (3.4-5.1); Sodium 142 mmol/L (137-145); Total Protein 6.4 g/dL (6.3-8.2)
[2024-08-31 13:14] LABS: TSH w/ Reflex to FT4 2.09 uIU/mL (0.47-4.68)
[2024-08-31 13:33] LABS: Vitamin B12 457 pg/mL (239-931)
[2024-08-31 14:35] LABS: Vitamin D 25 Hydroxy (D3) 17.5 ng/mL (30.0-100.0)
== END ==
PROVIDERS: PCP Family Medicine; Referring Provider Family Medicine; Visit Provider Family Medicine
DX: R05.9 Cough, unspecified (principal); R53.83 Other fatigue
CPT/HCPCS: 36415; 80053; 82306; 82607; 84443; 85025